=== PATIENT | female | born 1995 | race Caucasian/White ===

== ENCOUNTER 2018-06-08 18:50 | Emergency (ER) | payer SELFPAY, OTHER ==
[2018-06-08] MEDS ORDERED: METOCLOPRAMIDE 10 MG INJ IV (22:00)
[2018-06-08] MEDS ORDERED: DIPHENHYDRAMINE 50 MG INJ IV (22:00)
[2018-06-08] MEDS ORDERED: SOD CHLORIDE 0.9% 1,000 ML IV (22:00)
[2018-06-08 22:20] LABS: ADD UMIC NO; UR ASCORBIC ACID NEGATIVE (NEGATIVE); UR BILIRUBIN (Dip) NEGATIVE (NEGATIVE); UR BLOOD (Dip) NEGATIVE (NEGATIVE); UR CLARITY CLEAR (CLEAR); UR COLOR STRAW (YELLOW); UR GLUCOSE (Dip) NEGATIVE (NEGATIVE); UR KETONES (Dip) NEGATIVE (NEGATIVE); UR LEUKOCYTE ESTERASE (Dip) NEGATIVE Leu/ul (NEGATIVE); UR NITRITE (Dip) NEGATIVE (NEGATIVE); UR SPECIFIC GRAVITY (Dip) 1.014 (1.003-1.030); UR TOTAL PROTEIN (Dip) NEGATIVE (NEGATIVE); UR UROBILINOGEN (Dip) NEGATIVE (NEGATIVE)
[2018-06-08] MEDS: HYDROCODONE/APAP (10/325) TAB PO (22:29)
[2018-06-08] MEDS: METOCLOPRAMIDE 10 MG TAB PO (22:29)
== END 2018-06-08 22:46 | disposition home or self-care (01) ==
LOC: FTE 18:50
DX: G43.909 Migraine, unspecified, not intractable, without status migrainosus (principal)
CPT/HCPCS: 81003; 81025; 99284-25

== ENCOUNTER 2018-06-22 20:29 | Emergency (ER) | payer SELFPAY ==
[2018-06-22] MEDS: IBUPROFEN 600 MG TAB PO (23:37)
[2018-06-22] MEDS: LORAZEPAM 1 MG TAB PO (23:37)
== END 2018-06-23 01:11 | disposition home or self-care (01) ==
LOC: FTE 06-23 01:11
DX: R07.9 Chest pain, unspecified (principal)
CPT/HCPCS: 71046; 93005; 99284-25

== ENCOUNTER 2018-10-27 18:27 | Emergency (ER) | payer MEDICAID, OTHER ==
[2018-10-27] MEDS: ONDANSETRON (ODT) 4 MG TAB ODT (22:43)
[2018-10-27] MEDS: ACET/BUTAL/CAFF TAB PO (22:44)
== END 2018-10-27 22:59 | disposition home or self-care (01) ==
LOC: FTE 18:27
DX: G43.909 Migraine, unspecified, not intractable, without status migrainosus (principal)
CPT/HCPCS: 99283; Z7502

== ENCOUNTER 2019-05-01 20:41 | Emergency (ER) | payer SELFPAY, MEDICAID ==
[2019-05-01] MEDS ORDERED: KETOROLAC 60 MG INJ IM (21:52)
[2019-05-01] MEDS: MELOXICAM 15 MG TAB PO (23:20)
== END 2019-05-01 23:25 | disposition home or self-care (01) ==
LOC: FTE 20:41
DX: G43.919 Migraine, unspecified, intractable, without status migrainosus (principal)
CPT/HCPCS: 81025; 99283

== ENCOUNTER 2019-05-08 22:15 | Emergency (ER) | payer SELFPAY ==
[2019-05-08 23:32] LABS: URINE BLOOD (Dip) POC Trace-intact (NEGATIVE); URINE GLUCOSE (Dip) POC Negative (NEGATIVE); URINE KETONES (Dip) POC Negative (NEGATIVE); URINE LEUKOCYTE EST (Dip) POC Negative (NEGATIVE); URINE NITRITE (Dip) POC Negative (NEGATIVE); URINE TOTAL PROTEIN POC Negative (NEGATIVE)
[2019-05-08] MEDS: KETOROLAC 30 MG INJ IM (23:40)
== END 2019-05-09 00:23 | disposition home or self-care (01) ==
LOC: FTE 22:15
DX: R51 Headache (principal)
CPT/HCPCS: 81003; 81025; 96372; 99284-25